=== PATIENT | male | born 1985 | race Hispanic/Latino ===

== ENCOUNTER 2017-10-08 10:45 | Emergency (ER) | payer SELFPAY ==
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
[2017-10-08] MEDS ORDERED: Lidocaine 1% PF 5 ML VIAL ONE (11:57)
[2017-10-08] MEDS ORDERED: Bacitracin Zinc 1 Packet ONE (12:25)
[2017-10-08] MEDS ORDERED: Adacel (T-DAP) 0.5 ML VIAL ONE (12:34)
[2017-10-08] MEDS ORDERED: CEFAZOLIN/Water 2 GM/20 ML SYRINGE ONE (12:48)
[2017-10-08] MEDS ORDERED: CEFAZOLIN 1 GM VIAL IM SCH (13:00)
== END 2017-10-08 14:37 | disposition home or self-care (01) ==
LOC: ERS 10:45
DX: S62.630A Displaced fracture of distal phalanx of right index finger, initial encounter for closed fracture (principal); S61.210A Laceration without foreign body of right index finger without damage to nail, initial encounter; I10 Essential (primary) hypertension; F17.210 Nicotine dependence, cigarettes, uncomplicated; W31.89XA Contact with other specified machinery, initial encounter; Y92.69 Other specified industrial and construction area as the place of occurrence of the external cause
CPT/HCPCS: 12002; 90471; 90715; 96372; J0690; J2001

== ENCOUNTER 2017-11-30 02:23 | Emergency (ER) | payer SELFPAY | END 2017-11-30 03:27 | disposition home or self-care (01) | LOC: ERS 02:23 | DX: F19.10 Other psychoactive substance abuse, uncomplicated (principal); I10 Essential (primary) hypertension; F17.210 Nicotine dependence, cigarettes, uncomplicated | CPT/HCPCS: 99283 ==

== ENCOUNTER 2018-11-10 23:18 | Emergency (ER) | payer SELFPAY ==
[~2018-11-10 23:18] MED LIST: ISOVUE-370 76%-LOCM 1 ML ONE
[2018-11-10 23:40] LABS: #Eosinphils 0.1 thou/uL (0.0-0.7); #Lymphocytes 3.1 thou/uL (1.20-3.40); #Monocytes 0.4 thou/uL (0.11-0.59); %Basophils 0.4 % (0.0-1.0); %Eosinophils 1.6 % (0.0-10.0); %Lymphocytes 47.2 % (21.0-51.0); %Monocytes 6.4 % (0.0-10.0); %Neutrophils 44.4 % (42.0-75.0); Hemoglobin 15.3 g/dL (14.0-18.0); Mean Corpuscular HGB CONC 34.8 g/dL (32.0-36.0); Mean Corpuscular Hemoglobin 32.5 pg (27.0-31.0); Mean Corpuscular Volume 93.4 fL (78.0-98.0); Mean Platelet Volume 8.5 fL (7.4-10.4); Platelet Count 262 thou/uL (130-400); RBC Distribution Width 12.1 % (11.5-14.5); Red Blood Cell (RBC) Count 4.72 mill/uL (4.70-6.10); White Blood Cell (WBC) Count 6.6 thou/uL (4.8-10.8)
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
[2018-11-11 00:02] LABS: ALT (SGPT) 26 U/L (8-55); AST (SGOT) 30 U/L (5-34); Albumin 4.6 g/dL (3.5-5.0); Alkaline Phosphatase 82 U/L (40-150); Anion Gap 15 mmol/L (10-20); BUN (Urea Nitrogen) 8 mg/dL (8.9-20.6); Bilirubin, Total 0.2 mg/dL (0.2-1.2); Calc. Creatinine Clearance 0 mL/min (70-130); Carbon Dioxide 21 mmol/L (22-29); Chloride 109 mmol/L (98-107); Estimated GFR-MDRD 86; Globulin 3.2 g/dL (2.4-3.5); Glucose 106 mg/dL (70-105); Lipase 25 U/L (8-78); Potassium 3.7 mmol/L (3.5-5.1); Protein, Total 7.8 g/dL (6.0-8.3); Sodium 141 mmol/L (136-145)
[2018-11-11 00:06] LABS: Acetaminophen Less than 6.0 mcg/mL (10.0-30.0); Alcohol 201 mg/dL (Less than 10); Salicylate Less than 8.0 mg/dL (15.0-30.0)
[2018-11-11] MEDS ORDERED: Adacel (T-DAP) 0.5 ML SYRINGE ONE (00:36)
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
== END 2018-11-11 01:16 | disposition home or self-care (01) ==
LOC: ERS 23:18
DX: S22.41XA Multiple fractures of ribs, right side, initial encounter for closed fracture (principal); S00.81XA Abrasion of other part of head, initial encounter; S80.812A Abrasion, left lower leg, initial encounter; I10 Essential (primary) hypertension; F17.210 Nicotine dependence, cigarettes, uncomplicated; Z23 Encounter for immunization; V89.2XXA Person injured in unspecified motor-vehicle accident, traffic, initial encounter
CPT/HCPCS: 70450; 71260; 72125; 74177; 80053; 80307; 83605; 83690; 85025; 90471; 90715; 94799; G0390; Q9966

== ENCOUNTER 2019-12-17 04:37 | Inpatient (IN) | payer OTHER, SELFPAY ==
[2019-12-17 06:12] LABS: #Lymphocytes 1.4 thou/uL (1.20-3.40); #Monocytes 0.3 thou/uL (0.11-0.59); %Basophils 0.1 % (0.0-1.0); %Eosinophils 0.2 % (0.0-10.0); %Lymphocytes 16.1 % (21.0-51.0); %Neutrophils 80.6 % (42.0-75.0); Hemoglobin 14.2 g/dL (14.0-18.0); Mean Corpuscular HGB CONC 34.3 g/dL (32.0-36.0); Mean Corpuscular Volume 90.4 fL (78.0-98.0); Mean Platelet Volume 8.5 fL (7.4-10.4); Platelet Count 239 thou/uL (130-400); RBC Distribution Width 11.8 % (11.5-14.5); Red Blood Cell (RBC) Count 4.59 mill/uL (4.70-6.10); White Blood Cell (WBC) Count 8.6 thou/uL (4.8-10.8)
[2019-12-17 06:35] LABS: Alcohol 116 mg/dL (Less than 10); Anion Gap 15 mmol/L (10-20); BUN (Urea Nitrogen) 9 mg/dL (8.9-20.6); Calc. Creatinine Clearance 0 mL/min (70-130); Calcium 8.9 mg/dL (7.8-10.44); Carbon Dioxide 22 mmol/L (22-29); Chloride 105 mmol/L (98-107); Estimated GFR-MDRD Greater than 90; Glucose 115 mg/dL (70-105); Sodium 138 mmol/L (136-145)
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
[2019-12-17] MEDS ORDERED: TETANUS AND DIPHTHERIA TOX/PF 0.5 ML DISP.SYRIN IM ONE (07:37)
[2019-12-17] MEDS ORDERED: Dextrose 50% Abboject 50 ML SYRINGE SLOW IVP PRN (07:37)
[2019-12-17] MEDS ORDERED: Ondansetron PF 4 MG/2 ML Vial IVP PRN (07:37)
[2019-12-17] MEDS ORDERED: Dextrose 5% in Water 1,000 ML IV PRN (07:37)
[2019-12-17] MEDS ORDERED: Ondansetron ODT 4 MG TAB PO PRN (07:37)
[2019-12-17] MEDS ORDERED: hydrALAZINE 20 MG/ML VIAL SLOW IVP PRN (07:37)
[2019-12-17] MEDS ORDERED: Sodium Chloride 0.9% 1,000 ML IV SCH (07:45)
[2019-12-17] MEDS ORDERED: traMADol HCl 50 MG TAB PO PRN (07:50)
[2019-12-17 08:17] LABS: Phosphorus 3.3 mg/dL (2.3-4.7)
[2019-12-17] MEDS ORDERED: Lisinopril 10 MG TAB PO SCH ×2 (09:00→10:30)
[2019-12-17 09:36] VITALS: BMI 33.4
[2019-12-17] MEDS: Folic Acid/Vit B Comp W-C PO SCH (09:51)
[2019-12-17] MEDS: Acetaminophen 500 MG TAB PO SCH ×3 (09:51→20:34)
[2019-12-17] MEDS: Cyclobenzaprine 10 MG TAB PO PRN ×2 (09:51→18:07)
[2019-12-17] MEDS: Polyethylene Glycol 3350 17 GM Packet PO SCH (09:52)
[2019-12-17] MEDS: Senokot S 8.6-50 MG TAB PO SCH ×2 (09:52→20:35)
[2019-12-17] MEDS: Thiamine 100 MG TAB PO SCH (09:52)
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
[2019-12-17] MEDS ORDERED: Iopamidol-370 76% 500 ML 1 ML ONE (12:29)
[2019-12-17 12:58] LABS: Amphetamine Not Detected (NotDetected); Barbiturates Screen Not Detected (NotDetected); Benzodiazepine Screen Not Detected (NotDetected); Cocaine Metabolite Screen Detected (NotDetected); Medtox Control Line Valid? VALID (VALID); Medtox Reader # READER 4; Methadone Not Detected (NotDetected); Methamphetamine Not Detected (NotDetected); Opiate Screen Not Detected (NotDetected); Oxycodone Screen Not Detected (NotDetected); Phencyclidine (PCP) Not Detected (NotDetected); THC/Cannabinoid Screen Detected (NotDetected); Tricyclic Screen Not Detected (NotDetected)
[2019-12-17] MEDS: traMADol HCl 50 MG TAB PO PRN (18:07)
[2019-12-17] MEDS ORDERED: Morphine 4 MG/ML VIAL SLOW IVP PRN (22:06)
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
[2019-12-18] MEDS: traMADol HCl 50 MG TAB PO PRN ×2 (02:01→13:31)
[2019-12-18] MEDS: Acetaminophen 500 MG TAB PO SCH ×4 (02:02→20:45)
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
[2019-12-18 05:31] LABS: #Eosinphils 0.1 thou/uL (0.0-0.7); #Lymphocytes 2.5 thou/uL (1.20-3.40); #Monocytes 0.6 thou/uL (0.11-0.59); #Neutrophils 4.4 thou/uL (1.40-6.50); %Basophils 0.4 % (0.0-1.0); %Eosinophils 1.5 % (0.0-10.0); %Lymphocytes 32.9 % (21.0-51.0); %Monocytes 7.8 % (0.0-10.0); %Neutrophils 57.4 % (42.0-75.0); Hemoglobin 14.4 g/dL (14.0-18.0); Mean Corpuscular HGB CONC 34.4 g/dL (32.0-36.0); Mean Corpuscular Hemoglobin 31.7 pg (27.0-31.0); Mean Platelet Volume 8.5 fL (7.4-10.4); Platelet Count 216 thou/uL (130-400); RBC Distribution Width 11.9 % (11.5-14.5); Red Blood Cell (RBC) Count 4.54 mill/uL (4.70-6.10); White Blood Cell (WBC) Count 7.7 thou/uL (4.8-10.8)
[2019-12-18 05:42] LABS: Anion Gap 10 mmol/L (10-20); BUN (Urea Nitrogen) 10 mg/dL (8.9-20.6); Calc. Creatinine Clearance 178 mL/min (70-130); Calcium 8.9 mg/dL (7.8-10.44); Carbon Dioxide 26 mmol/L (22-29); Chloride 103 mmol/L (98-107); Estimated GFR-MDRD Greater than 90; Glucose 102 mg/dL (70-105); Sodium 135 mmol/L (136-145)
[2019-12-18 05:44] LABS: Phosphorus 2.5 mg/dL (2.3-4.7)
[2019-12-18] MEDS: Polyethylene Glycol 3350 17 GM Packet PO SCH (09:32)
[2019-12-18] MEDS: Folic Acid/Vit B Comp W-C PO SCH (09:34)
[2019-12-18] MEDS: Thiamine 100 MG TAB PO SCH (09:34)
[2019-12-18] MEDS: Lisinopril 10 MG TAB PO SCH (09:34)
[2019-12-18] MEDS: Cyclobenzaprine 10 MG TAB PO PRN ×2 (09:35→18:28)
[2019-12-18] MEDS: Ibuprofen 600 MG TAB PO PRN ×2 (09:35→18:28)
[2019-12-18] MEDS: Senokot S 8.6-50 MG TAB PO SCH ×2 (09:35→20:46)
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
[2019-12-18] MEDS ORDERED: CEFAZOLIN 2 GM in Premix Bag 1 BAG IVPB SCH (10:45)
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
[2019-12-19] MEDS: Acetaminophen 500 MG TAB PO SCH ×4 (01:07→20:16)
[2019-12-19] MEDS ORDERED: Fentanyl 100 MCG/2 ML VIAL ONE ×4 (07:41→10:59)
[2019-12-19] MEDS: Polyethylene Glycol 3350 17 GM Packet PO SCH (08:27)
[2019-12-19] MEDS: Lisinopril 10 MG TAB PO SCH (08:27)
[2019-12-19] MEDS: Senokot S 8.6-50 MG TAB PO SCH ×2 (08:27→20:17)
[2019-12-19] MEDS: Folic Acid/Vit B Comp W-C PO SCH (08:27)
[2019-12-19] MEDS: Thiamine 100 MG TAB PO SCH (08:27)
[2019-12-19] MEDS ORDERED: Ondansetron HCl/PF 4 MG/2 ML Vial IVP PRN (08:46)
[2019-12-19] MEDS ORDERED: Promethazine HCl 25 MG/ML VIAL IM PRN (08:46)
[2019-12-19] MEDS ORDERED: PACU-Morphine 4MG/ML VIAL SLOW IVP PRN (08:46)
[2019-12-19] MEDS ORDERED: Promethazine HCl 25 MG/ML VIAL SLOW IVP PRN (08:46)
[2019-12-19] MEDS ORDERED: Ketorolac Tromethamine 30 MG/ML VIAL ONE (11:59)
[2019-12-19] MEDS ORDERED: Lidocaine 1% PF 5 ML VIAL ONE (11:59)
[2019-12-19] MEDS ORDERED: Dexamethasone 20 MG/5 ML VIAL ONE (11:59)
[2019-12-19] MEDS ORDERED: PROPOFOL 200 MG/20 ML VIAL ONE (11:59)
[2019-12-19] MEDS ORDERED: Glycopyrrolate 0.2 MG/ML 5 ML SYRINGE ONE (11:59)
[2019-12-19] MEDS ORDERED: Succinylcholine Chloride 20 MG/ML 10 ml SYRINGE FS ONE (11:59)
[2019-12-19] MEDS ORDERED: Ondansetron PF 4 MG/2 ML Vial ONE (11:59)
[2019-12-19] MEDS ORDERED: Rocuronium Bromide 10 MG/ML (10ML VIAL) ONE (11:59)
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
[2019-12-19] MEDS ORDERED: Lisinopril 10 MG TAB PO SCH (13:15)
[2019-12-19] MEDS: Oxazepam 10 MG CAP PO SCH ×2 (13:51→21:22)
[2019-12-19] MEDS ORDERED: cloNIDine 0.2 MG TAB PO SCH (15:30)
[2019-12-19] MEDS: Gabapentin 300 MG CAP PO SCH ×2 (15:45→20:16)
[2019-12-19] MEDS: CEFAZOLIN 2 GM in Premix Bag 1 BAG IVPB SCH ×2 (15:45→23:21)
--- NOTE | 2019-12-19 15:58 | RAD ---
INTRAOPERATIVE IMAGING OF THE LEFT TIBIA/FIBULA: Date: 12-19-2019 History: ORIF FINDINGS: Two intraoperative images demonstrate surgical fixation of proximal tibial fracture with a lateral sc rew and plate fixation. There is anatomic alignment at the fracture site. IMPRESSION: ORIF as above. POS: [facility]
--- NOTE | 2019-12-19 16:56 | RAD ---
LEFT ANKLE THREE VIEWS: History: Ankle pain. FINDINGS: No significant soft tissue swelling. No evidence of fracture. No osseous abnormality identified. IMPRESSION: No acute findings. POS: [facility]
[2019-12-19] MEDS ORDERED: traMADol HCl 50 MG TAB PO PRN (17:42)
[2019-12-19] MEDS ORDERED: traMADol HCl 50 MG TAB PO SCH (18:00)
[2019-12-19] MEDS: Cyclobenzaprine 10 MG TAB PO PRN (20:16)
[2019-12-19] MEDS ORDERED: Acetaminophen/Codeine 30-300mg Tablet PO PRN (21:00)
[2019-12-19] MEDS: Acetaminophen/Codeine 30-300mg Tablet PO PRN (21:21)
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
[2019-12-19] MEDS: Acetaminophen 325 MG TAB PO SCH (23:23)
[2019-12-20] MEDS: Oxazepam 10 MG CAP PO SCH (05:17)
[2019-12-20] MEDS: Acetaminophen/Codeine 30-300mg Tablet PO PRN (05:17)
[2019-12-20] MEDS: Acetaminophen 325 MG TAB PO SCH (05:17)
[2019-12-20 05:43] LABS: Mean Corpuscular HGB CONC 32.7 g/dL (32.0-36.0); Mean Corpuscular Hemoglobin 30.2 pg (27.0-31.0); Mean Corpuscular Volume 92.1 fL (78.0-98.0); Mean Platelet Volume 8.6 fL (7.4-10.4); Platelet Count 235 thou/uL (130-400); RBC Distribution Width 11.8 % (11.5-14.5); Red Blood Cell (RBC) Count 4.63 mill/uL (4.70-6.10); White Blood Cell (WBC) Count 8.6 thou/uL (4.8-10.8)
[2019-12-20 05:59] LABS: Band 3 % (5-11); Lymphocytes 32 % (21-51); MDiff Complete? YES; Monocytes 5 % (0-10); Neutrophil 59 % (42-75); Reactive Lymphocytes 1 % (0-10)
[2019-12-20 07:13] LABS: Anion Gap 12 mmol/L (10-20); BUN (Urea Nitrogen) 12 mg/dL (8.9-20.6); Calc. Creatinine Clearance 164 mL/min (70-130); Calcium 9.2 mg/dL (7.8-10.44); Carbon Dioxide 28 mmol/L (22-29); Chloride 101 mmol/L (98-107); Estimated GFR-MDRD Greater than 90; Glucose 107 mg/dL (70-105); Phosphorus 3.3 mg/dL (2.3-4.7); Potassium 3.9 mmol/L (3.5-5.1); Sodium 137 mmol/L (136-145)
[2019-12-20] MEDS ORDERED: Enoxaparin Sodium 40 MG/0.4 ML SYRINGE SC SCH (09:00)
[2019-12-20] MEDS ORDERED: Lisinopril 20 MG TAB PO SCH (09:00)
[2019-12-20] MEDS ORDERED: Amlodipine 10 MG TAB PO SCH (09:00)
[2019-12-20] MEDS ORDERED: Lisinopril 10 MG TAB PO SCH (09:00)
[2019-12-20] MEDS: CEFAZOLIN 2 GM in Premix Bag 1 BAG IVPB SCH (10:25)
[2019-12-20] MEDS: Cyclobenzaprine 10 MG TAB PO PRN (10:25)
[2019-12-20] MEDS: Folic Acid/Vit B Comp W-C PO SCH (10:26)
[2019-12-20] MEDS: Gabapentin 300 MG CAP PO SCH (10:26)
[2019-12-20] MEDS: Thiamine 100 MG TAB PO SCH (10:26)
[2019-12-20] MEDS: Polyethylene Glycol 3350 17 GM Packet PO SCH (10:27)
[2019-12-20] MEDS: Senokot S 8.6-50 MG TAB PO SCH (10:27)
[2019-12-20 10:44] VITALS: BP 150/90; TEMP 97.4
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
== END 2019-12-20 12:07 | disposition home or self-care (01) | DRG 494 ==
LOC: ERS 04:37 → SURG A 07:47
PROVIDERS: ADMIT Surgery; ATTEND Surgery
PROC: 0QSH04Z Reposition Left Tibia with Internal Fixation Device, Open Approach (ICD-10-PCS; principal; 2019-12-19)
DX: S82.142A Displaced bicondylar fracture of left tibia, initial encounter for closed fracture (principal); F10.129 Alcohol abuse with intoxication, unspecified; I10 Essential (primary) hypertension; Y90.5 Blood alcohol level of 100-119 mg/100 ml; F19.10 Other psychoactive substance abuse, uncomplicated; S93.402A Sprain of unspecified ligament of left ankle, initial encounter; V49.40XA Driver injured in collision with unspecified motor vehicles in traffic accident, initial encounter
CPT/HCPCS: 27532; 36415; 71045; 76000; 80048; 80306; 80307; 83735; 84100; 85007; 85025; 85027; 90714; 93005; C1713; J0360; J0690; J1100; J1650; J1885; J2001; J2270; J2405; J2704; J3010; Q9967